=== PATIENT | female | born 1955 | race Caucasian/White ===

== ENCOUNTER 2016-12-05 11:47 | Emergency (ER) | payer OTHER ==
[~2016-12-05] VITALS: Ht 152.4 cm; Wt 72.6 kg
[~2016-12-05 11:47] MED LIST: AMLODIPINE BESY10 MG PO; ASPIRIN EC81 MG PO; CARVEDILOL25 MG PO; CIPROFLOXACIN500 MG PO; COMBIVENT RESPIM4 GM INH; COZAAR25 MG PO; CYCLOBENZAPRINE10 MG PO; DILANTIN100 MG PO; FERROUS SULFAT325 MG PO; HYDRALAZINE HCL25 MG PO; HYDRALAZINE HCL50 MG PO; HYDROCHLOROTH12.5 MG PO; IPRAT-ALBUT 0.5-3 ML INH; LEVAQUIN500 MG PO; LEVOTHYROXINE150 MCG PO; NAPROSYN500 MG PO; NICODERM CQ1 EAC1 TD; NORCO 5-325 TA1 EACH PO; OXYBUTYNIN CHLOR5 MG PO; PREDNISONE20 MG PO; PROTONIX40 MG PO; QVAR7.3 G1 INH; RANITIDINE HCL150 MG PO; SPIRONOLACTONE50 MG PO; VENTOLIN HFA18 GM INH; VITAMIN C250 MG PO; WELLBUTRIN XL300 MG PO
--- NOTE | 2016-12-05 15:58 | EKG ---
[facility] [address] [facility] [place] [address] Signed Normal sinus rhythm Normal ECG When compared with ECG of 03-NOV-2016 20:11, premature ventricular complexes are no longer present Nonspecific T wave abnormality now evident in Anterior leads Confirmed by ULYSSES CONTRERAS MD ([id number]) on 12/05/2016 3:57:51 PM Electronically Signed By: ULYSSES CONTRERAS MD 12/05/16 1558 PATIENT NAME: RICKIE HARRINGTON Electrocardiogram DATE OF : 53 PHYSICIAN: ULYSSES CONTRERAS MD REPORT #: [id number] REPORT IS CONFIDENTIAL AND NOT TO BE RELEASED WITHOUT AUTHORIZATION
[2016-12-05] MEDS ORDERED: NITROSTAT0.4 MG SL (17:01)
== END 2016-12-05 17:15 | disposition home or self-care (01) ==
LOC: ED 11:47
DX: R07.9 Chest pain, unspecified (principal); I10 Essential (primary) hypertension; Z87.891 Personal history of nicotine dependence; Z79.899 Other long term (current) drug therapy; Z79.82 Long term (current) use of aspirin
CPT/HCPCS: 80053; 84484; 85025; 85610; 85730; 93005; 93010; 99284

== ENCOUNTER 2017-10-31 04:08 | Emergency (ER) | payer OTHER ==
[~2017-10-31] VITALS: Ht 152.4 cm; Wt 59.0 kg
[~2017-10-31 04:08] MED LIST changes: +NITROSTAT0.4 MG SL
[2017-10-31] MEDS ORDERED: OMEPRAZOLE20 MG PO (06:02)
--- NOTE | 2017-10-31 21:11 | EKG ---
[facility] [address] [facility] [place] [address] Signed Normal sinus rhythm Rightward axis Borderline ECG When compared with ECG of 05-DEC-2016 11:54, Nonspecific T wave abnormality no longer evident in Anterior leads Confirmed by ULYSSES CONTRERAS MD ([id number]) on 10/31/2017 9:11:18 PM Electronically Signed By: ULYSSES CONTRERAS MD 10/31/172110 PATIENT NAME: RICKIE HARRINGTON Electrocardiogram DATE OF : 53 PHYSICIAN: ULYSSES CONTRERAS MD REPORT #: [id number] REPORT IS CONFIDENTIAL AND NOT TO BE RELEASED WITHOUT AUTHORIZATION
== END 2017-10-31 07:20 | disposition home or self-care (01) ==
LOC: ED 04:08
DX: K31.9 Disease of stomach and duodenum, unspecified (principal); I10 Essential (primary) hypertension; Z87.891 Personal history of nicotine dependence; Z79.899 Other long term (current) drug therapy; Z79.82 Long term (current) use of aspirin
CPT/HCPCS: 71045; 80053; 84484; 85025; 93005; 93010; 96374; 99284

== ENCOUNTER 2017-11-12 18:45 | Emergency (ER) | payer OTHER ==
[~2017-11-12] VITALS: Ht 152.4 cm; Wt 59.0 kg
[~2017-11-12 18:45] MED LIST changes: +OMEPRAZOLE20 MG PO
[2017-11-12] MEDS ORDERED: PREDNISONE20 MG PO (21:44)
--- NOTE | 2017-11-13 01:56 | EKG ---
[facility] [address] [facility] [place] [address] Signed Sinus rhythm with 1st degree AV block Incomplete right bundle branch block Prolonged QT Abnormal ECG When compared with ECG of 31-OCT-2017 04:11, NH interval has increased Questionable change in QRS axis Confirmed by SHASTA MONTENEGRO MD ([id number]) on 11/13/2017 1:55:51 AM Electronically Signed By: SHASTA MONTENEGRO MD 11/13/17 0156 PATIENT NAME: JUANYRICKIEEPI WALTON Electrocardiogram DATE OF : 53 PHYSICIAN: SHASTA MONTENEGRO MD REPORT #: [id number] REPORT IS CONFIDENTIAL AND NOT TO BE RELEASED WITHOUT AUTHORIZATION
== END 2017-11-12 22:05 | disposition home or self-care (01) ==
LOC: ED 18:45
DX: L50.0 Allergic urticaria (principal); I10 Essential (primary) hypertension; Z87.891 Personal history of nicotine dependence; Z79.899 Other long term (current) drug therapy; Z79.82 Long term (current) use of aspirin
CPT/HCPCS: 71045; 80053; 84484; 85025; 93005; 93010; 94640; 96361; 96372; 96374; 96375; 99284; J1200; J2930; J7040

== ENCOUNTER 2017-11-29 10:39 | Emergency (ER) | payer OTHER ==
[~2017-11-29] VITALS: Ht 152.4 cm; Wt 59.0 kg
[2017-11-29] MEDS ORDERED: PREDNISONE10 MG PO (12:23)
[2017-11-29] MEDS ORDERED: PEPCID40 MG PO (12:23)
[2017-11-29] MEDS ORDERED: ZYRTEC10 MG PO (12:23)
[2017-11-29] MEDS ORDERED: NEURONTIN300 MG PO (12:34)
--- NOTE | 2017-11-30 08:13 | EKG ---
[facility] [address] [facility] [place], [place] [address] Signed Normal sinus rhythm Normal ECG When compared with ECG of 12-NOV-2017 18:57, DE interval has decreased Questionable change in QRS axis Confirmed by ULYSSES CONTRERAS MD ([id number]) on 11/30/2017 8:13:17 AM Electronically Signed By: ULYSSES CONTRERAS MD 11/30/17812 PATIENT NAME: RICKIE HARRINGTON Electrocardiogram DATE OF : 53 PHYSICIAN: ULYSSES CONTRERAS MD REPORT #: [id number] REPORT IS CONFIDENTIAL AND NOT TO BE RELEASED WITHOUT AUTHORIZATION
== END 2017-11-29 13:31 | disposition home or self-care (01) ==
LOC: ED 10:39
DX: T78.40XA Allergy, unspecified, initial encounter (principal); J44.1 Chronic obstructive pulmonary disease with (acute) exacerbation; I11.0 Hypertensive heart disease with heart failure; I10 Essential (primary) hypertension; Z87.891 Personal history of nicotine dependence; Z79.899 Other long term (current) drug therapy
CPT/HCPCS: 71045; 80053; 85025; 93005; 93010; 94640; 96374; 96375; 99284; 99406; J0360; J1200; J2930

== ENCOUNTER 2018-07-23 02:20 | Emergency (ER) | payer OTHER ==
[~2018-07-23] VITALS: Ht 152.4 cm; Wt 54.4 kg
[~2018-07-23 02:20] MED LIST changes: +NEURONTIN300 MG PO; +PEPCID40 MG PO; +PREDNISONE10 MG PO; +ZYRTEC10 MG PO
[2018-07-23] MEDS ORDERED: CARBIDOPA-LEVO1 EACH PO (02:36)
[2018-07-23] MEDS ORDERED: CLOPIDOGREL75 MG PO (02:38)
[2018-07-23] MEDS ORDERED: LIPITOR80 MG GT (02:38)
[2018-07-23] MEDS ORDERED: TESSALON PERLE100 MG PO (03:40)
== END 2018-07-23 04:08 | disposition home or self-care (01) ==
LOC: ED 02:20
DX: J44.9 Chronic obstructive pulmonary disease, unspecified (principal); I10 Essential (primary) hypertension; Z87.891 Personal history of nicotine dependence; Z79.899 Other long term (current) drug therapy; Z79.82 Long term (current) use of aspirin
CPT/HCPCS: 71046; 96374; 99285-25; J1200

== ENCOUNTER 2019-06-26 01:56 | Emergency (ER) | payer OTHER ==
[~2019-06-26] VITALS: Ht 152.4 cm; Wt 59.0 kg
[~2019-06-26 01:56] MED LIST changes: +CARBIDOPA-LEVO1 EACH PO; +CLOPIDOGREL75 MG PO; +LIPITOR80 MG GT; +TESSALON PERLE100 MG PO
[2019-06-26] MEDS ORDERED: PREDNISONE20 MG PO (03:17)
[2019-06-26] MEDS ORDERED: IPRAT-ALBUT 0.5-3 ML INH (03:17)
[2019-06-26] MEDS ORDERED: TRUNEB NEBULIZ1 EACH NEB (03:19)
--- NOTE | 2019-06-26 19:47 | EKG ---
[facility] [address] [facility] [place] [address] Signed Normal sinus rhythm Pulmonary disease pattern Left anterior fascicular block Abnormal ECG When compared with ECG of 29-NOV-2017 10:58, Left anterior fascicular block is now present Confirmed by HOMER CHRISTY DO ([id number]) on 06/26/2019 7:46:51 PM Electronically Signed By: HOMER CHRISTY DO 06/26/19 1947 PATIENT NAME: RICKIE HARRINGTON Electrocardiogram DATE OF : 53 PHYSICIAN: HOMER CHRISTY DO REPORT #: [id number] REPORT IS CONFIDENTIAL AND NOT TO BE RELEASED WITHOUT AUTHORIZATION
== END 2019-06-26 03:48 | disposition home or self-care (01) ==
LOC: ED 01:56
DX: J44.1 Chronic obstructive pulmonary disease with (acute) exacerbation (principal); I10 Essential (primary) hypertension; Z87.891 Personal history of nicotine dependence; Z79.899 Other long term (current) drug therapy; Z79.82 Long term (current) use of aspirin
CPT/HCPCS: 71045; 93005; 93010; 96374; 99284-25; J2930

== ENCOUNTER 2020-06-14 11:00 | Emergency (ER) | payer OTHER ==
[~2020-06-14] VITALS: Ht 152.4 cm; Wt 54.4 kg
[~2020-06-14 11:00] MED LIST changes: +HYDROCHLOROTHIA25 MG PO; +TRUNEB NEBULIZ1 EACH NEB
--- OUTSIDE RECORDS SUMMARY | 2020-06-14 11:02 | XMS ---
PreManage Notification: RICKIE ZENG Security Roller [employer] Events No recent Security Events currently on file CRITERIA MET - [facility] - 2 Visits in 30 Days CARE PROVIDERS DAWSON GAONA Nurse Practitioner: Family Current PHONE: [phone] Addis has no Care Guidelines for this patient. Zara VISIT COUNT (12 MO[address] 3 [facility] TOTAL 3 NOTE: Visits indicate total known visits. 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
[2020-06-14] MEDS ORDERED: OXYCODONE HCL5 MG PO (11:56)
== END 2020-06-14 12:15 | disposition home or self-care (01) ==
LOC: ED 11:00
DX: S93.402A Sprain of unspecified ligament of left ankle, initial encounter (principal); W10.9XXA Fall (on) (from) unspecified stairs and steps, initial encounter; I10 Essential (primary) hypertension; J44.9 Chronic obstructive pulmonary disease, unspecified; E03.9 Hypothyroidism, unspecified; Z87.891 Personal history of nicotine dependence; Z79.899 Other long term (current) drug therapy; Z79.82 Long term (current) use of aspirin
CPT/HCPCS: 73610; 99283-25

== ENCOUNTER 2022-05-07 02:47 | Emergency (ER) | payer OTHER ==
[~2022-05-07] VITALS: Ht 152.4 cm; Wt 70.9 kg
[~2022-05-07 02:47] MED LIST changes: +OXYCODONE HCL5 MG PO
[2022-05-07] MEDS ORDERED: PREDNISONE20 MG PO (05:44)
[2022-05-07] MEDS ORDERED: CEPHALEXIN500 MG PO (05:44)
--- NOTE | 2022-05-07 19:40 | EKG ---
[facility] [address] [facility] [place] [address] Signed Sinus rhythm with occasional premature ventricular complexes Minimal voltage criteria for LVH, may be normal variant ( [place] product ) T wave abnormality, consider anterior ischemia Abnormal ECG When compared with ECG of 23-MAY-2020 00:00, premature ventricular complexes are now present T wave inversion now evident in Anterior leads Confirmed by ULYSSES CONTRERAS MD ([id number]) on 05/07/2022 7:40:35 PM Electronically Signed By: ULYSSES CONTRERAS MD 05/07/221939 PATIENT NAME: RICKIE ZENG Electrocardiogram DATE OF : 53 PHYSICIAN: ULYSSES CONTRERAS MD REPORT #: [id number] REPORT IS CONFIDENTIAL AND NOT TO BE RELEASED WITHOUT AUTHORIZATION
== END 2022-05-07 09:15 | disposition home or self-care (01) ==
LOC: ED 02:47
DX: J44.1 Chronic obstructive pulmonary disease with (acute) exacerbation (principal); I10 Essential (primary) hypertension; E03.9 Hypothyroidism, unspecified; Z20.822 Contact with and (suspected) exposure to COVID-19; Z87.891 Personal history of nicotine dependence; Z79.82 Long term (current) use of aspirin; Z79.899 Other long term (current) drug therapy
CPT/HCPCS: 36415; 71045; 80048; 80053; 81001; 83605; 84484; 85025; 87502; 93005; 93010; 94640; 96374; 96375; 99285-25; C9803; J0360; J0696; J2930; U0003

== ENCOUNTER 2023-10-30 03:33 | Observation (INO) | payer OTHER ==
[~2023-10-30] VITALS: Ht 152.4 cm; Wt 65.5 kg
[2023-10-30] VITALS (20 sets, daily range): BP systolic 120–175; BP diastolic 64–103
[~2023-10-30 03:33] MED LIST changes: -ASPIRIN EC81 MG PO; +CEPHALEXIN500 MG PO; +LASIX20 MG PO; -LIPITOR80 MG GT; +LIPITOR80 MG PO; +LO-DOSE ASPIRIN81 MG PO; +MACROBID 100 M100 MG PO; +PEPCID20 MG PO
[2023-10-30] MEDS ORDERED: methylPREDNISolone SOD SUCC 125 MG/2 ML VIAL IV ONE (03:45)
[2023-10-30] MEDS ORDERED: ALBUTEROL/IPRATROPIUM 3 ML NEB INH ONE (03:45)
[2023-10-30] MEDS ORDERED: hydrALAZINE HCL 20 MG/ML VIAL IV ONE (04:00)
[2023-10-30 04:06] LABS: HEMOGLOBIN 12.8 g/dL (12.0-18.0); MCV 91.9 fl (81-99); PLATELET COUNT 180 K/uL (140-440)
[2023-10-30 04:08] LABS: BASOPHILS 0.6 % (0-2); EOSINOPHILS 6.1 % (0-6); HEMATOCRIT 39.2 % (35.0-50.0); LYMPHOCYTES 15.1 % (24-44); MCHC 32.6 g/dl (30-36); MONOCYTES 8.4 % (0-12); NEUTROPHILS 69.8 % (39-80); RBC 4.26 M/ul (4.3-5.7); RDW 15.4 (10.5-15.0)
[2023-10-30 04:35] LABS: ALBUMIN/GLOBULIN RATIO 1.11 (1.1-2.4); ANION GAP 14.6 (7-21); BILIRUBIN, TOTAL 0.3 ng/dL (0.2-1.0); CALCIUM 8.9 mg/dL (8.5-10.1); CREATININE, SERUM 1.25 mg/dL (0.55-1.02); POTASSIUM 3.6 mmol/L (3.5-5.1); PROTEIN, TOTAL 7.6 g/dL (6.4-8.2)
[2023-10-30 04:39] LABS: INFLUENZA B NAA NEGATIVE (NEGATIVE); RESPIRATORY SYNCYTIAL VIR NAA NEGATIVE (NEGATIVE)
[2023-10-30] MEDS ORDERED: POTASSIUM CHLORIDE 10 MEQ TABCR PO ONE (05:00)
[2023-10-30] MEDS ORDERED: FUROSEMIDE 40 MG/4 ML VIAL IV ONE (05:00)
[2023-10-30] MEDS ORDERED: PAXLOVID 150-11 EAC1 PO (05:11)
[2023-10-30 06:03] LABS: BILIRUBIN, URINE NEGATIVE (negative); BLOOD/HGB, URINE NEGATIVE (Negative); KETONE, URINE NEGATIVE (Negative); LEUK ESTERASE, URINE SMALL (negative); NITRITE, URINE POSITIVE (negative)
[2023-10-30 06:07] LABS: EPITHELIAL CELLS, URINE SQUAMOUS 1+ /lpf (0-1+)
[2023-10-30 06:08] LABS: BACTERIA, URINE 4+ /hpf (negative); CASTS, URINE NONE SEEN \\lpf; CRYSTALS, URINE NONE SEEN (0-1+); REFLEX CULTURE, URINE Yes (No); WHITE BLOOD CELLS, URINE >50 /HPF (0-5)
[2023-10-30] MEDS ORDERED: carvediloL 25 MG TAB PO ONE (06:15)
[2023-10-30] MEDS ORDERED: AMLODIPINE BESYLATE 10 MG TAB PO ONE (06:15)
[2023-10-30] MEDS ORDERED: TRIMETHOPRIM/SULFAMETHOXAZOLE 1 EA TAB PO ONE (06:15)
[2023-10-30] MEDS ORDERED: NITROGLYCERIN PACKET TOP ONE (07:00)
[2023-10-30] MEDS ORDERED: INHALER, ASSIST DEVICES 1 EACH SPACER MISC ONE (07:30)
[2023-10-30] MEDS ORDERED: ACETAMINOPHEN 325 MG TAB PO PRN (07:45)
[2023-10-30] MEDS ORDERED: ondansetron HCL 4 MG/2 ML VIAL IV PRN (07:45)
[2023-10-30] MEDS ORDERED: LOSARTAN POTASS50 MG PO (07:52)
[2023-10-30] MEDS ORDERED: HYDRALAZINE HC100 MG PO (07:57)
[2023-10-30] MEDS ORDERED: OXYBUTYNIN CHLO15 MG PO (07:57)
[2023-10-30] MEDS ORDERED: NITROGLYCERIN PACKET TOP SCH (08:00)
[2023-10-30] MEDS ORDERED: FLUTICASONE-SA1 EAC4 INH (08:06)
[2023-10-30] MEDS ORDERED: FUROSEMIDE20 MG PO (08:07)
[2023-10-30] MEDS ORDERED: LEVODOPA/CARBIDOPA 10/100 1 EA TAB PO SCH (09:00)
[2023-10-30] MEDS ORDERED: LOSARTAN POTASSIUM 50 MG TAB PO SCH ×3 (09:00→21:00)
[2023-10-30] MEDS ORDERED: PANTOPRAZOLE SODIUM 40 MG TABEC PO SCH (09:00)
[2023-10-30] MEDS ORDERED: CLOPIDOGREL BISULFATE 75 MG TAB PO SCH (09:00)
[2023-10-30] MEDS ORDERED: ENOXAPARIN SODIUM 40 MG/0.4 ML SYR SUB-Q SCH (09:00)
[2023-10-30] MEDS ORDERED: oxyBUTYnin chloride 5 MG TAB PO SCH ×2 (09:00→09:31)
[2023-10-30] MEDS ORDERED: ALBUTEROL/IPRATROPIUM 3 ML NEB INH SCH ×2 (09:00→12:00)
[2023-10-30] MEDS ORDERED: PHENYTOIN SODIUM 100 MG CAP PO SCH ×2 (09:00→09:27)
[2023-10-30] MEDS ORDERED: hydrALAZINE HCL 50 MG TAB PO SCH ×3 (09:00→21:00)
[2023-10-30] MEDS ORDERED: ASPIRIN 81 MG TABEC PO SCH (09:00)
[2023-10-30] MEDS ORDERED: LEVOTHYROXINE SODIUM 150 MCG TAB PO SCH (09:00)
[2023-10-30] MEDS ORDERED: hydroCHLOROthiazide 25 MG TAB PO SCH ×2 (09:00→09:26)
[2023-10-30] MEDS ORDERED: HYDROCHLOROTH12.5 MG PO (09:24)
--- NOTE | 2023-10-30 09:45 | NUR ---
PATIENT'S RESTING NOW AFTER EATING HER BREAKFAST. PT STATES SHE DIDN'T LIKE THE FOOD. PATIENT NOTED TO BE DESATURATING WHILE SLEEPING/RESTING AND DOWN TO LOW 84%. 2L NC APPLIED TO PATIENT.
[2023-10-30] MEDS ORDERED: ALBUTEROL SULFATE 0.083% 3 ML VIAL INH PRN (10:00)
--- NOTE | 2023-10-30 11:01 | NUR ---
UR CLINICAL REVIEW: [facility] OBS 10/30/23 @ 0707 YES MATCHES REG STATUS NO AUTH NEEDED FOR OBS STAY DISCHARGE TO HOME 10/31/23.
--- NOTE | 2023-10-30 11:13 | NUR ---
DR. ONEILL IN TO SEE PATIENT AND DISCUSS PLAN OF CARE. PT STILL DENIES CHEST PAIN. NITRO PASTE TO BE TAKEN OFF OF PATIENT'S CHEST. PATIENT ALSO TAKEN OFF THE OXYGEN WHILE AWAKE, SHE IS 92-95% ON ROOM AIR. WILL CONTINUE TO MONITOR.
--- NOTE | 2023-10-30 11:58 | EKG ---
[facility] [address] [facility] [place] [address] Signed Normal sinus rhythm Prolonged QT Abnormal ECG When compared with ECG of 16-FEB-2023 16:45, MD interval has decreased Nonspecific T wave abnormality no longer evident in Anterolateral leads QT has lengthened Confirmed by DEBBIE ONEILL MD ([id number]) on 10/30/2023 11:58:16 AM Electronically Signed By: DEBBIE ONEILL 10/30/23 1158 PATIENT NAME: RICKIE ZENG ANTON Electrocardiogram DATE OF : 53 PHYSICIAN: DEBBIE ONEILL REPORT #: [id number] REPORT IS CONFIDENTIAL AND NOT TO BE RELEASED WITHOUT AUTHORIZATION
[2023-10-30] MEDS ORDERED: PHARMACY RENAL DOSE ADJUSTMENT 1 DOSE MISC PO SCH (12:00)
--- NOTE | 2023-10-30 12:31 | NUR ---
Medications reconciled using pharmacy records and patient interview
--- NOTE | 2023-10-30 13:11 | NUR ---
PATIENT UP TO BEDSIDE COMMODE TO VOID, STEADY ON FEET. PT'S DOG "ISELA" REMAINS IN ROOM AND ON PATIENT'S BED WITH HER. SHE STATES SHE GOES EVERYWHERE WITH HER. PT STATES SHE DOES NOT HAVE ANYONE WHO CAN COME TAKE CARE OF HER DOG FOR HER. PT'S BLOOD PRESSURE HAS BEEN MUCH BETTER CONTROLLED AND NITRO PASTE HAS REMAINED OFF. WILL CONTINUE TO MONITOR.
--- NOTE | 2023-10-30 16:28 | NUR ---
FRESH ICE WATER PROVIDED PER REQUEST. PATIENT STATES SHE SELF TRANSFERRED TO BSC FOR VOID. CHARTED. THIS FOAM FABRICATOR TOOK PATIENTS DOG OUTSIDE(IT'S RAINING AND DOG DID NOT VOID) DOG HAS BEEN SHARING FOOD WITH PATIENT AND HAS HER OW WATER DISH. PATIENTS CALL LIGHT NA DPERSONALL ITEMS ARE CLOSE BY. NO OTHER NEEDS AT THIS TIME.
--- NOTE | 2023-10-30 18:39 | NUR ---
PATIENT RESTING AFTER DINNER, CURRENTLY ASLEEP WITH HER DOG [place] ON THE BED. PT REMAINS ON ROOM AIR, BUT DOES DROP OCCASIONALLY DOWN BELOW 90%. WILL MONITOR OVERNIGHT AND USE [address] PINK IN CCU EARLIER THIS AFTERNOON AND GIVEN AN UPDATE ON THIS PATIENT. IF SBP RISES AND REMAINS >160 OR DIASTOLIC >110, OKAY TO GIVE NIGHT TIME DOSES OF HOME MEDS EARLY. LAST BP WAS 175/85. WILL GIVE 2100 DOSES OF MEDS SOON AVAILABLE FROM PHARMACY.
--- NOTE | 2023-10-30 19:45 | NUR ---
PATIENT RESTING IN BED WATCHING TV. CALL LIGHT IN REACH. DENIES NEEDS.
--- NOTE | 2023-10-30 20:31 | NUR ---
PATIENT SLEEP ON HER BACK WITH HOB AT 20 30 DEGREES. PATIENT DESAT TO 75% ON ROOM AIR, POSSIBLE DUE TO SLEEP APNEA. 2L NC PLACED ON PATIENT.
[2023-10-30] MEDS ORDERED: carvediloL 25 MG TAB PO SCH (21:00)
--- NOTE | 2023-10-30 21:00 | NUR ---
RT PROVIDED NEB TREATMENT. PATIENT IS AAOX4. TOLERATING RA WHILE AWAKE. EXP WHEEZE NOTED IN MIKAEL UPPER LOBES, DIMINSIHED IN THE BASES. PATIENT DENIED FEELING SOB AT THIS TIME. VS STABLE. PATIENT UP TO THE BSC TO VOID. TOLERATES ACTIVIEY WELL. FRESH WATER PROVIDED. PATIENT DENIED ANY FURTHER NEEDS OR CONCERNS. CALL LIGHT IN REACH.
--- NOTE | 2023-10-30 21:03 | NUR ---
DISCUSSED PATIENT'S BP WITH MD. PRN HTN MEDS RECEIVED. SEE EMAR.
[2023-10-30] MEDS ORDERED: hydrALAZINE HCL 20 MG/ML VIAL IV PRN (22:00)
--- NOTE | 2023-10-30 23:00 | NUR ---
PATIENT RESTING IN BED. VS STABLE. CALL LIGHT IN REACH.
[2023-10-31] VITALS (15 sets, daily range): BP systolic 119–174; BP diastolic 69–88
--- NOTE | 2023-10-31 01:30 | NUR ---
PATIENT UP TO BSC. CONTINUES TO TOLERATE ROOM AIR WHILE AWAKE, 2L NC WHILE SLEEPING DUE TO SLEEP APNEA. PATIENT VS STABLE. PATIENT DENIED ANY CONCERNS.
--- NOTE | 2023-10-31 03:30 | NUR ---
PATIENT APPEARS RESTFUL. VS STABLE. CALL LIGHT IN REACH.
--- NOTE | 2023-10-31 05:15 | NUR ---
PATIENT AAOX4. PATIENT UP TO AMBULATE WITHOUT O2 ON. PATIENT TOLERATED 3-5 MINS OF ACTIVITY WITHOUT FEELING SOB. Sp02 >90% ON ROOM AIR. VS STABLE. PATIENT DENIED ANY CONCERNS. IS EXCITED FOR BREAKFAST. PROVIDED FRESH ICE WATER.
[2023-10-31 05:31] LABS: BASOPHILS 0.8 % (0-2); EOSINOPHILS 2.9 % (0-6); HEMATOCRIT 35.4 % (35.0-50.0); HEMOGLOBIN 11.7 g/dL (12.0-18.0); MCH 30.1 (27-36); MCV 91.1 fl (81-99); MONOCYTES 10.1 % (0-12); NEUTROPHILS 53.2 % (39-80); PLATELET COUNT 181 K/uL (140-440); RBC 3.89 M/ul (4.3-5.7); RDW 14.9 (10.5-15.0)
[2023-10-31 05:41] LABS: ANION GAP 13.9 (7-21); BUN/CREATININE RATIO 22.05 (6.0-28.6); CALCIUM 8.5 mg/dL (8.5-10.1); CREATININE, SERUM 1.36 mg/dL (0.55-1.02); MAGNESIUM 1.8 mg/dL (1.8-2.4); POTASSIUM 3.9 mmol/L (3.5-5.1)
--- NOTE | 2023-10-31 08:43 | NUR ---
PATIENT RESTING IN BED, WOKE TO VOICE. VITALS AND I&OS CHARTED. BREAKFAST AND FRESH ICE WATER PROVIDED. DOG AT END OF BED. NO OTHER NEEDS AT THIS TIME
[2023-10-31] MEDS ORDERED: AMLODIPINE BESYLATE 10 MG TAB PO SCH (09:00)
[2023-10-31] MEDS ORDERED: FUROSEMIDE 20 MG TAB PO SCH (09:00)
[2023-10-31] MEDS ORDERED: hydroCHLOROthiazide 25 MG TAB PO SCH (09:00)
--- NOTE | 2023-10-31 10:42 | NUR ---
ROUNDS COMPLETED WITH MD PINK. ALL MEDICATIONS AND EDUCATION COMPLETED. PATIENT AZUCENA UNDERSTANDS THAT SHE IS REQUESTED TO MEMORIZE MEDS AND INDICATIONS PRIOR TO DISCHARGE. PATIENT IS COOPERATIVE BUT UPSET THAT SHE IS REQUESTED TO "MEMORIZE ALL OF THIS SHIT" SHE STATES THAT "THIS IS BULLSHIT". THIS RN GAVE PATIENT A LIST OF MEDICATIONS, DOSAGES, AND INDICATIONS. HER SUPPORT DOG ISELA IS AT BEDSIDE
--- NOTE | 2023-10-31 13:24 | NUR ---
PT APPEARED TO BE SLEEPING. DID NOT DISTURB. PROVIDED PRAYER.
--- NOTE | 2023-10-31 13:25 | NUR ---
PATIENT IS VARY TIRED, HAS HAD A BUSY DAY.THE PATIENT TOOK TNE DOG FOR A WALK. PATIENT IS SLEEPING WITH [place] THE PATIENT'S DOG AND CHAMPANION. PATIENT WANTS TO GO HOME TODAY PER NURSING STAFF. WILL CHECK BACK LATER.
--- NOTE | 2023-10-31 14:31 | NUR ---
UR CONCURRENT REVIEW: CONCURRENT REVIEW COMPLETED IN [facility]. PATIENT MEETS CRITERIA FOR OBS STAY. NEXT REVIEW 11/01/23. PLAN TO DC HOME ON 11/01/23.
--- NOTE | 2023-10-31 15:26 | NUR ---
SPOKE TO PATIENT ABOUT THE DC PLAN.PATIENT LIVES ALONE AND IS ABLE TO AFFORD HOUSING,FOOD AND UTILITIES.PATIENT CAN DO HER OWN ADLS AND STILL DRIVES.DOES NOT USE DME OR OXYGEN THAT IS ORDERED AT NIGHT. PATIENT DOES USE HER INHALER. PATIENT SPENDS MOST OF HER TIME AT THE [employer]. PATIENT HAS A SISTER THAT CAN HELP IF NEEDED. PATIENT WAS AMITTED TO HOSPITAL BECAUSE THE PATIENT MISSED TAKING MEDICATION WHILE AT THE [employer].PATIENT WILL BE STAYING IN THE HOSPITAL FOR MEDICATION EDUCATION TO CONTROLL THE PATIENT'S EDUCATION.
--- NOTE | 2023-10-31 15:45 | NUR ---
RECEIVED REPORT FROM TROY LARSON. ASSUMING CARE OF PT. PT TRANSFERRED TO MED/SURG UNIT. VSS. PT SERVICE DOG AT THE BEDSIDE. PT DENIES PAIN OR SOB. LUNG SOUNDS CLEAR. TELE IN PLACE PER ORDER. PT STATES NO CURRENT NEEDS, CALL LIGHT WITHIN REACH.
--- NOTE | 2023-10-31 15:48 | NUR ---
SBAR REPORT GIVEN TO TROY FREDERICK. PATIENT "CARMEN" WAS TRANSFERRED IN STABLE CONDITION WITH RN VIA RECLINER WITH SUPPORT ANIMAL [place] ON LAP. VSS AND WDL PER ORDERED PARAMETERS. ALL BELONGINGS ARE WITH PATIENT. SHE DENIED ANY NEEDS OR DISCOMFORTS AT TIME OF TRANSFER.
--- NOTE | 2023-10-31 16:45 | NUR ---
IV IN R AC NOT PATENT, THIS RN CALLS DR PINK TO UPDATE AND ASK IF PT NEEDS IV D/T PLAN TO DC IN THE MORNING. MD STATES TO ATTEMPT NEW IV D/T HYDRALAZINE IV PRN ON EMAR. PT UPDATED. R AC IV DC'D WNL, WRAPPED IN GAUZE AND COBAN. NEW IV PLACED ON FIRST ATTEMPT IN R HAND, FLUSHED WITH 10ML NS. PT TOLERATED WELL. PT STATES NO FURTHER NEEDS OR QUESTIONS AT THIS TIME, CALL LIGHT WITHIN REACH.
--- NOTE | 2023-10-31 17:33 | NUR ---
PT SITTING ON BED. DINNER TRAY BROUGHT IN. PT REQUESTS WARM BLANKET AND ICE WATER, GIVEN. PT STATES NO FURTHER NEEDS AT THIS TIME, CALL LIGHT WITHIN REACH.
--- NOTE | 2023-10-31 18:34 | NUR ---
THIS RN CALLS PHARMACY TO GET UPDATE ON PT MED EDUCATION. PHARMACIST STATES THAT MED EDUCATION WILL OCCUR AT DC D/T POSSIBLE CHANGES TO MEDICATIONS IN DC ORDER.
--- NOTE | 2023-10-31 19:35 | NUR ---
REPORT RECEIVED FROM DAY RN. PATIENT UP TO BATHROOM. DENIES ANY NEEDS AT THIS TIME. CALL LIGHT WITHIN REACH.
--- NOTE | 2023-10-31 21:06 | NUR ---
PATIENT RESTING IN BED. LUNGS CTA, BOWEL TONES ACITVE. DENIES ANY PAIN OR DISCOMFORT AT THIS TIME. VSS. DENIES ANY HEADACHE OR DIZZINESS. HS MEDICATIONS ADMINISTERED. EDUCATION ON MUTLIPLE BLOOD PRESSURE MEDICATIONS GIVEN. FRESH ICE WATER GIVEN. NO FURTHER NEEDS AT THIS TIME. CALL LIGHT WITHIN REACH.
--- NOTE | 2023-11-01 00:05 | NUR ---
PATIENT RESTING IN BED WITH EYES CLOSED. RESPIRATIONS EVEN AND UNLABORED. CALL LIGHT WITHIN REACH.
--- NOTE | 2023-11-01 00:31 | NUR ---
CALL LIGHT ANSWERED. PT NEEDED TO TAKE HER DOG OUTSIDE. BANDER AND CELLOPHANER HELPER MACHINE HAD PT STEVEN MASK AND WALKED WITH PT AND PT DOG OUTSIDE THEN BACK TO ROOM. PT IN BED AND STATES NO FURTHER NEEDS AT THIS TIME. CALL LIGHT WITHIN REACH.
[2023-11-01 01:37] VITALS: BP 141/93
--- NOTE | 2023-11-01 01:45 | NUR ---
GASTROENTEROLOGY NURSE PRACTITIONER DONNED PPE AND ENTERED ROOM. GASTROENTEROLOGY NURSE PRACTITIONER OBTAINED VITALS AND I&O. ICE WATER REFILLED PER PT REQUEST. PT STATES NO FURTHER NEEDS AT THIS TIME. CALL LIGHT PLACED WITHIN REACH.
[2023-11-01 01:51] VITALS: BP 141/93
--- NOTE | 2023-11-01 04:09 | NUR ---
PATIENT RESTING IN BED WITH EYES CLOSED. RESPIRATIONS EVEN AND UNLABORED. CALL LIGHT WITHIN REACH.
[2023-11-01 05:00] VITALS: BP 146/96
[2023-11-01 05:04] VITALS: BP 146/96
--- NOTE | 2023-11-01 05:05 | NUR ---
PATIENT AWAKE SITTING ON EDGE OF BED, PLAYING GAME ON PHONE. DENIES ANY PAIN OR DISCOMFORT AT THIS TIME. VSS. SERVICE DOG ON BED WITH PATIENT. CALL LIGHT WITHIN REACH.
[2023-11-01] MEDS ORDERED: CARVEDILOL25 MG PO (07:34)
--- NOTE | 2023-11-01 07:50 | NUR ---
recieved shift report. pt awake in bed, call light in reach. denies needs.
[2023-11-01 08:59] VITALS: BP 142/84
--- NOTE | 2023-11-01 09:00 | NUR ---
Spoke with Brittney and she plans on dc to home today with her dog. She drove herself in and plans on driving home. She denies any needs, states her sister will assist her if she has any needs. Pt was repeatedly educated by nurse to picker tender a bp cuff and meds.
--- NOTE | 2023-11-01 09:03 | NUR ---
MORNING ASSESSMENT COMPLETE. PT UP TO THE BATHROOM, DENIES SHORTNESS OF BREATH. LUNG SOUNDS CLEAR. MEDICATION ADMINISTERED. EDUCATED DONE ON MEDICATIONS. PT DOESNT APPEAR INTERESTED IN UNDERSTANDING THE MEDICATIONS GIVEN. CALLL LIGHT IN REACH. ICE WATER GIVEN PER REQUEST.
--- NOTE | 2023-11-01 10:52 | NUR ---
ATTEMPTED TO VISIT DURING SPIRITUAL CARE ROUNDS. PT ON PHONE. DID NOT INTERRUPT. PROVIDED PRAYER.
--- NOTE | 2023-11-01 10:54 | NUR ---
UNABLE TO VISIT DURING SPIRITUAL CARE ROUNDS; PT RECEIVING NURSING CARE. DID NOT INTERRUPT. PROVIDED PRAYER.
[2023-11-01 11:03] VITALS: BP 111/82
== END 2023-11-01 11:15 | disposition home or self-care (01) ==
LOC: ED 03:33 → CCU 03:34 → MS 10-31 15:07
PROVIDERS: Internal Medicine; ADMIT Internal Medicine; ATTEND Internal Medicine
DX: I16.0 Hypertensive urgency (principal); U07.1 COVID-19; J44.9 Chronic obstructive pulmonary disease, unspecified; I12.9 Hypertensive chronic kidney disease with stage 1 through stage 4 chronic kidney disease, or unspecified chronic kidney disease; N18.30 Chronic kidney disease, stage 3 unspecified; G40.909 Epilepsy, unspecified, not intractable, without status epilepticus; E03.9 Hypothyroidism, unspecified; Z91.148 Patient's other noncompliance with medication regimen for other reason; Z87.891 Personal history of nicotine dependence; Z79.899 Other long term (current) drug therapy; Z79.890 Hormone replacement therapy
CPT/HCPCS: 36415; 71045; 80048; 80053; 81001; 83735; 83880; 84484; 85025; 87088; 87502; 93005; 93010; 94640; 94667; 94668; 94760; 96372; 96374; 96375; 99285-25; A9270; G0378; J0360; J1650; J1940; J2919; U0002